=== PATIENT | female | born 1980 | race Caucasian/White ===

== ENCOUNTER 2016-06-06 07:12 | Emergency (ER) | payer OTHER ==
[~2016-06-06] VITALS: Ht 152.4 cm; Wt 77.1 kg
[~2016-06-06 07:12] MED LIST: FLEXERIL10 MG PO; MOTRIN600 MG PO; PERCOCET 325 MG1 TA2 PO
[2016-06-06 07:15] VITALS: BP 176/98
--- NOTE | 2016-06-06 07:30 | ED GENERAL ADULT ---
History of Present Illness General Chief Complaint: Eye Problems Stated Complaint: ?OCCULAR CELLULITIS PER PT IN R EYE Source: patient Exam Limitations: no limitations Vital Signs & Intake/Output Vital Signs & Intake/Output Vital Signs Date Time Temp Pulse Resp B/P Pulse O2 O2 Flow FiO2 Ox Delivery Rate 06/06 1022 97.1 06/06 0803 98 06/06 0715 97.1 98 18 176/98 99 Room Air Allergies Coded Allergies: amoxicillin (Intermediate, RASH 06/06/16) Sulfa (Sulfonamide Antibiotics) (UNKNOWN 06/06/16) morphine (UNKNOWN 06/06/16) Reconcile Medications Clindamycin HCl 300 MG CAPSULE 1 CAP PO TID PERIORD\BITAL CELLULITIS Triage Note: PT STATES THAT SHE THINKS SHE HAS OCULAR CELLULITIS, PT HAS HAD IT IN THE PAST AND STATES THAT SHE NEEDS EYE DROPS. EYE LID NOTED TO BE SWOLLEN Triage Nurses Notes Reviewed? yes Onset: Abrupt Duration: day(s): Timing: recent history : No Patient currently breastfeeds: No HPI: 06/06/16 8 AM 36-year-old female presents to the emergency department complaining of right periorbital swelling. According to the patient she was in his usual state of health until approximately 48 hours ago. She says that her right eye has swollen up. She was seen in urgent care center and given drops and a got worse. She has significant pain to the periorbital area and swelling. It is extending in the inferior aspect of her eye. The onset of the symptoms were abrupt, the duration has been approximately 72 hours, the severity is significant as her symptoms required her to come to the emergency department for care. She denies any possibility of . Past History Travel History Traveled to [place] past 21 day No Medical History Any Pertinent Medical History? see below for history Neurological: NONE EENT: NONE Cardiovascular: NONE Respiratory: NONE Gastrointestinal: NONE Hepatic: NONE Renal: NONE Musculoskeletal: NONE Psychiatric: NONE Endocrine: NONE Blood Disorders: NONE Cancer(s): NONE SUPREME COURT JUDGE/Reproductive: NONE Tetanus Vaccine: 11/24/14 Surgical History Surgical History: N Psychosocial History Who do you live with Family Services at Home None What is your primary language Cuban Tobacco Use: Never used ETOH Use: heavy use Illicit Drug Use: denies illicit drug use Family History Hx Contributory? No Review of Systems Review of Systems Constitutional: Denies: fever. EENTM: Denies: visual changes. Respiratory: Denies: short of breath. Cardiovascular: Denies: chest pain. GI: Reports: no symptoms. Genitourinary: Reports: no symptoms. Musculoskeletal: Reports: no symptoms. Skin: Reports: no symptoms. Neurological/Psychological: Reports: no symptoms. Hematologic/Endocrine: Reports: no symptoms. Immunologic/Allergic: Reports: no symptoms. Physical Exam Physical Exam General Appearance: well developed/nourished, alert, awake, anxious, mild distress Head: atraumatic, normal appearance Eyes: Bilateral: PERRL, EOMI (periorbital erythema right). Ears, Nose, Throat: normal pharynx Neck: normal inspection, supple, full range of motion Respiratory: normal breath sounds, chest non-tender, no respiratory distress Cardiovascular: regular rate/rhythm, edema Peripheral Pulses: 4+ radial (R), 4+ radial (L) Gastrointestinal: soft, non-tender Back: normal range of motion Extremities: normal inspection Neurologic/Psych: no motor/sensory deficits, awake, alert, oriented x 3 Skin: rash Comments: Visual acuity was 20/20 Physical exam has right eyelid swelling, the eye itself is noninjected, there is no erythema, pupils are equally reactive to light, no hyphema, funduscopic exam is normal. There is mild pinkish erythema on the inferior aspect of the orbital area. CT shows only preseptal edema. The patient was treated with clindamycin. She will follow up the biometric fingerprinting technician in the a.m. If she is unable to access the biometric fingerprinting technician she will return to the ED for reevaluation. PATIENT: ANTOINE BURNS PRESENT AGE: 36 PATIENT ACCOUNT NO: [id number] : 79 LOCATION: [facility] ORDERING PHYSICIAN: LES MILLER DO SERVICE DATE: 06/06/16 EXAM TYPE: CAT - CT ORBITS WO IV CONTRAST EXAMINATION: CT ORBIT WITHOUT CONTRAST CLINICAL INFORMATION: Right periorbital swelling. COMPARISON: Head CT 11/24/2014. TECHNIQUE: A multidetector CT acquisition of the orbits is obtained without IV contrast. Multiplanar reformats are acquired and utilized for image interpretation. FINDINGS: There is mild right periorbital soft tissue swelling confined to the preseptal soft tissues without postseptal extension. Left orbital soft tissues normal. Partial fatty atrophy of the right parotid gland. Left parotid gland normal. Nasopharyngeal soft tissues are normal. The partially imaged intracranial compartment is unremarkable. There is moderate mucosal thickening within the right maxillary sinus. There is a dependent retention cyst within the left maxillary sinus. The remaining paranasal sinuses are well-aerated. Pneumatization of the right optic strut and a portion of the right anterior clinoid process. Sigmoid deviation of the nasal septum. IMPRESSION: - Right-sided preseptal cellulitis without postseptal extension. - Moderate right maxillary sinus mucosal disease. Retention cyst within the left maxillary sinus. - Sigmoid deviation of the nasal septum. DICTATED BY: LES SOLANO MD DATE/TIME DICTATED:06/06/16944 BILLBOARD ERECTOR HELPER:JAKUB DATE/TIME TRANSCRIBED:06/06/16944 CONFIDENTIAL, DO NOT COPY WITHOUT APPROPRIATE AUTHORIZATION. <Electronically signed in Other Vendor System> SIGNED BY: LES SOLANO MD 06/06/16 0958 Core Measures ACS in differential dx? No CVA/TIA Diagnosis: No Severe Sepsis Present: No Septic Shock Present: No Progress Differential Diagnoses I considered the following diagnoses in my evaluation of the patient: [Orbital cellulitis, periorbital cellulitis, stye, conjunctivitis, glaucoma] Plan of Care: Orders Procedure Date/time Status ED- VISUAL ACUITY 06/06 0749 Active Initial ED EKG: none Departure Departure Disposition: STILL A PATIENT Condition: Stable Clinical Impression Primary Impression: Periorbital cellulitis Referrals: BRAD COBURN,RAMY Abel (PCP/Family) Departure Forms: Customer Survey General Discharge Information Prescriptions: Current Visit Scripts Clindamycin HCl 1 CAP PO TID #21 CAP Critical Care Note Critical Care Note Critical Care Time: non-applicable
--- NOTE | 2016-06-06 09:58 | CT SCAN REPORT ---
EXAMINATION: CT ORBIT WITHOUT CONTRAST CLINICAL INFORMATION: Right periorbital swelling. COMPARISON: Head CT 11/24/2014. TECHNIQUE: A multidetector CT acquisition of the orbits is obtained without IV contrast. Multiplanar reformats are acquired and utilized for image interpretation. FINDINGS: There is mild right periorbital soft tissue swelling confined to the preseptal soft tissues without postseptal extension. Left orbital soft tissues normal. Partial fatty atrophy of the right parotid gland. Left parotid gland normal. Nasopharyngeal soft tissues are normal. The partially imaged intracranial compartment is unremarkable. There is moderate mucosal thickening within the right maxillary sinus. There is a dependent retention cyst within the left maxillary sinus. The remaining paranasal sinuses are well-aerated. Pneumatization of the right optic strut and a portion of the right anterior clinoid process. Sigmoid deviation of the nasal septum. IMPRESSION: - Right-sided preseptal cellulitis without postseptal extension. - Moderate right maxillary sinus mucosal disease. Retention cyst within the left maxillary sinus. - Sigmoid deviation of the nasal septum.
[2016-06-06] MEDS ORDERED: CLINDAMYCIN HC300 M1 PO (10:16)
== END 2016-06-06 10:22 ==
LOC: ERH 07:12
DX: L03.211 Cellulitis of face (principal)